=== PATIENT | male | born 1940 | race Caucasian/White ===

== ENCOUNTER → 2020-03-28 09:59 | Outpatient (CLI) | payer MEDICARE, OTHER, SELFPAY ==
--- NOTE | 2020-03-28 10:06 | DI.NM.S_ITS ---
PROCEDURE: NM BONE SCAN WHOLE BODY RADIOPHARMACEUTICAL: 20 mCi Tc-99m MDP IV. INDICATIONS: Elevated prostate specific antigen [PSA] TECHNIQUE: Delayed whole-body scintigrams were obtained approximately 3-4 hours after intravenous injection of radiotracer. Anterior and posterior views were acquired from vertex to feet. Additional left and right oblique views of the pelvis were obtained. COMPARISON: None. FINDINGS: There are foci of increased focal uptake in sternum and the left iliac crest, suspicious for metastasis. Increased activity in cervical, thoracic and lumbar spine may be degenerate in nature, but early metastasis could be obscured. No lesions are identified in skull, clavicles, scapulae, ribs, and visualized shafts of the long bones. There are foci of increased periarticular activity involving shoulders, sternoclavicular joints, elbows, wrists, hands, hips, SI joints, left knee and right foot, compatible with degenerative/arthritic changes. IMPRESSION: 1. Increased uptake in sternum and the left iliac crest suspicious for osseous metastases. Recommend radiographic correlation. 2. Degenerative changes in cervical, thoracic and lumbar spine. Recommend radiographic correlation. 3. Arthritic changes in multiple peripheral joints. Dictated by: Nataliia Ruiz M.D. on 03/28/2020 at 15:12 Approved by: Nataliia Ruiz M.D. on 03/28/2020 at 15:17
== END ==
PROVIDERS: Referring Provider Urology; Visit Provider Urology
DX: R97.20 Elevated prostate specific antigen [PSA] (principal); M47.812 Spondylosis without myelopathy or radiculopathy, cervical region; M47.814 Spondylosis without myelopathy or radiculopathy, thoracic region; M47.816 Spondylosis without myelopathy or radiculopathy, lumbar region
CPT/HCPCS: 78306; A9503

== ENCOUNTER → 2020-04-02 07:53 | Outpatient (CLI) | payer MEDICARE, OTHER, SELFPAY ==
--- NOTE | 2020-04-02 | DI.CT.S_ITS ---
PROCEDURE: CT ABDOMEN PELVIS WO/W CON INDICATIONS: PROSTATE CANCER TECHNIQUE: Optional 5 mm thick noncontrast images acquired from the diaphragm to the symphysis pubis. After the administration of intravenous contrast, 5 mm thick images acquired from the diaphragm to the symphysis pubis after a 10-minute delay. 2 mm thick coronal and sagittal reformats were then performed of the kidneys and ureters. For radiation dose reduction, the following was used: automated exposure control, adjustment of mA and/or kV according to patient size. COMPARISON: None. FINDINGS: Image quality: Excellent. Lung bases: Lung bases are clear. Heart size is normal. Urinary system: Both kidneys are normal in size, without hydronephrosis or nephrolithiasis on pre-contrast images. No perinephric fat stranding. There is normal bilateral renal enhancement. Renal calyces appear normal in morphology when filled with contrast. Opacified portions of both ureters demonstrate normal caliber. Bladder wall thickness is normal. No calcified bladder stones. Other solid organs: The liver is mildly diffusely hypodense. There are several focal hypodensities scattered throughout the liver, many are too small to characterize being subcentimeter in size. The largest, in segment V/six, measures 1.6 cm and has Hounsfield units consistent with a cyst. Gallbladder is unremarkable . Biliary system is non dilated. Pancreas enhances normally. Spleen is normal in size and enhancement. No adrenal nodules. Peritoneum and bowel: Bowel loops demonstrate normal wall thickness and caliber. No free fluid or air. Nodes and vessels: No retroperitoneal or mesenteric adenopathy by size criteria. Aorta and inferior vena cava are normal in size. Abdominal wall: No ventral hernias. Pelvis: No pathologic free pelvic fluid. Partially imaged, small right hydrocele. No hernias or pelvic adenopathy.. Bones: No suspicious bony lesions. Degenerative scoliosis in the thoracolumbar spine and moderate to severe degenerative change in both hip joints. No vertebral body compression fractures. IMPRESSION: 1. Multiple hepatic hypodensities, the largest is consistent with a cyst or hemangioma. Many of the others are too small to characterize. 2. No other evidence to suggest metastatic disease in the abdomen or pelvis. 3. Partially imaged right hydrocele. 4. Osseous degenerative changes without CT evidence of metastatic disease. Dictated by: Netta Rascon M.D. on 04/02/2020 at 10:38 Approved by: Netta Rascon M.D. on 04/02/2020 at 10:45
[2020-04-02 08:36] LABS: Blood Urea Nitrogen 13 mg/dL (9-20); Calcium 8.9 mg/dL (8.4-10.2); Carbon Dioxide 33 mmol/L (22-32); Chloride 100 mmol/L (98-107); Estimated Glomerular Filt Rate > 60.0 mL/min (>60); Glucose 156 mg/dL (80-110); HEMOLYSIS < 15 (0-50); Potassium 4.7 mmol/L (3.4-5.1); Sodium 135 mmol/L (137-145)
--- NOTE | 2020-04-02 09:06 | DI.CT.S_ITS ---
PROCEDURE: CT CHEST WO CON INDICATIONS: elevated PSA TECHNIQUE: Noncontrast 5 mm thick sections acquired from the pulmonary apices to the posterior costophrenic angles. 1 mm lung window, 5 mm thick coronal and sagittal and 7 mm axial MIP reformats were then acquired. For radiation dose reduction, the following was used: automated exposure control, adjustment of mA and/or kV according to patient size. COMPARISON: None. FINDINGS: Image quality: Excellent. Lungs and pleura: There is a subpleural spiculated lung nodule in the posterior right upper lobe measuring about 1.6 x 1.4 cm with a trace amount of cavitation. Trace subpleural fibrotic changes in the caudal right middle lobe and at the medial lung bases bilaterally. No acute air space opacities. No pleural effusions or pneumothorax. Central and peripheral airways are patent and normal in caliber. Mediastinum: Heart size is normal. No pericardial effusion. No mediastinal adenopathy by size criteria. Thoracic aorta and central pulmonary arteries are normal in size. Tortuous course of the descending thoracic aorta. Esophagus is normal in caliber. No hiatal hernia. Bones and chest wall: No suspicious bony lesions. There are severe degenerative changes in the endplates at the L1-2 level. No vertebral body compression fractures. No axillary or supraclavicular adenopathy by size criteria. Thyroid gland is diminutive . Abdomen: Visualized upper abdomen demonstrates a few partially characterized hypodensities scattered in the right lobe of the liver. Please refer to the accompanying CT abdomen pelvis report. IMPRESSION: 1. 1.6 cm cavitary solid lung nodule in the posterior right upper lobe. Findings are suspicious for primary neoplasm, though differential diagnosis includes metastatic disease or infection, potentially atypical or fungal. 2. Partially characterized hepatic hypodensities. Please see report of the CT abdomen pelvis performed on the same day. 3. No other evidence of metastatic disease in the chest. Dictated by: Netta Rascon M.D. on 04/02/2020 at 10:25 Approved by: Netta Rascon M.D. on 04/02/2020 at 10:36
== END ==
PROVIDERS: PCP Specialist; Referring Provider Urology; Visit Provider Urology
DX: C61 Malignant neoplasm of prostate (principal); R97.20 Elevated prostate specific antigen [PSA]; R91.1 Solitary pulmonary nodule; M41.9 Scoliosis, unspecified; N43.3 Hydrocele, unspecified
CPT/HCPCS: 36415; 71250; 74178; 80048; Q9967